=== PATIENT | female | born 1990 | race Two or more races ===

== ENCOUNTER 2021-07-08 21:49 | Emergency (ER) | payer OTHER ==
[~2021-07-08] VITALS: Ht 162.6 cm; Wt 61.7 kg
[2021-07-08] MEDS ORDERED: BENADRYL25 MG PO (22:02)
== END 2021-07-09 04:14 | disposition home or self-care (01) ==
LOC: ER 21:49
DX: H11.32 Conjunctival hemorrhage, left eye (principal)

== ENCOUNTER 2021-08-03 16:48 | Emergency (ER) | payer OTHER ==
[~2021-08-03] VITALS: Ht 167.6 cm; Wt 59.0 kg
[~2021-08-03 16:48] MED LIST: BENADRYL25 MG PO
== END 2021-08-03 22:21 | disposition home or self-care (01) ==
LOC: ER 16:48
DX: R10.32 Left lower quadrant pain (principal)

== ENCOUNTER 2024-06-03 18:37 | Emergency (ER) | payer OTHER ==
[~2024-06-03] VITALS: Ht 165.1 cm; Wt 72.6 kg
[~2024-06-03 18:37] MED LIST changes: +BACTRIM DS TAB1 EACH PO; +PEPCID AC20 MG PO
== END 2024-06-03 21:20 | disposition left against medical advice (07) ==
LOC: ER 18:40
DX: Z53.21 Procedure and treatment not carried out due to patient leaving prior to being seen by health care provider (principal)

== ENCOUNTER 2024-10-22 22:24 | Emergency (ER) | payer OTHER ==
[~2024-10-22] VITALS: Ht 162.6 cm; Wt 77.1 kg
[2024-10-23] MEDS ORDERED: KETOROLAC TROMETHAMINE 60 MG VIAL IM STA (00:22)
[2024-10-23 01:11] LABS: BASO % 0.4 % (0.1-1.2); EOS # 0.29 (0.04-0.54); EOS % 2.1 % (0.7-7.0); LYMPH # 2.32 (1.18-3.74); LYMPH % 17.0 % (19.3-53.1); MEAN PLATELET VOLUME 8.50 fl (9.4-12.4); MONO # 0.96 (0.24-0.82); MONO % 7.1 % (4.7-12.5); NEUT # 9.92 (1.56-6.13); NEUT % 72.9 % (34.0-71.1); RED CELL DISTRIBUTION WIDTH 13.8 % (11.6-14.4)
[2024-10-23 01:36] LABS: BUN CREA RATIO 15.0 (7.0-25.0); CREATININE SERUM 0.68 mg/dL (0.55-1.02); GFR 100.27; GLUCOSE FASTING 152.0 mg/dL (65-100); OSMOLALITY SERUM 285.0 MOSM/KG (275-295)
[2024-10-23 02:48] LABS: URINE APPEARANCE Clear; URINE BILIRRUBIN Negative (NEGATIVE); URINE BLOOD Negative; URINE COLOR Yellow; URINE GLUCOSE Negative (NEGATIVE); URINE KETONE Negative (NEGATIVE); URINE LEUKOCYTE Small; URINE NITRATE Negative; URINE PROTEIN Negative (NEGATIVE); URINE UROBILINOGEN 0.2 E.U./dl
[2024-10-23 02:49] LABS: URINE BACTERIA 1237.1 uL (0.0-1933); URINE EPITHELIAL CELLS 74.5 uL (0.0-38.8); URINE RBC 2.3 uL (0.0-20.8); URINE WBC 68.7 uL (0.0-23.2)
[2024-10-23 03:38] LABS: TYPE CELLS SQUAMOUS; URINE CAST 0.00 uL (0.0-1.40)
== END 2024-10-23 04:32 | disposition home or self-care (01) ==
LOC: ER 22:24
DX: N94.3 Premenstrual tension syndrome (principal); R10.2 Pelvic and perineal pain